=== PATIENT | female | born 1975 | race Caucasian/White ===

== ENCOUNTER 2024-08-29 15:02 | Emergency (ER) | payer OTHER, SELFPAY ==
--- NOTE | ~2024-08-29 | CT_ITS ---
CT abdomen pelvis w con Ordering provider: Naomi Falcon MD History: 49 years Female with . ABDOMINAL PAIN . Comparison: None. Technique: CT abdomen and pelvis with IV and without oral contrast. Automated exposure control and it erative reconstruction technique were employed. The dose-length product was 611.24 mGy-cm. 100 mL Omn ipaque 350 was given IV. Findings: VISUALIZED LOWER CHEST: Normal. UPPER ABDOMINAL ORGANS: Liver: Normal. Gallbladder: Slightly increased density near to the fundus area is seen in the coronal images which m ay be stones. Ultrasound evaluation advised. Spleen: Normal. Stomach/duodenum: Normal. Pancreas: Normal. Adrenals: Normal. Kidneys: Old scars are seen in the right kidney upper pole. PELVIC ORGANS: The bladder is normal. Right ovarian cysts are seen in the largest measures 2.9 CNM. Pain BOWEL AND MESENTERY: Colon: No evidence of diverticulitis.. Normal appendix. Small Bowel: Normal. No obstruction. Peritoneum/mesentery: No free air or free fluid. No mesenteric lymphadenopathy. RETROPERITONEUM: Normal aorta. No retroperitoneal lymphadenopathy. MUSCULOSKELETAL: Superficial soft tissues: The superficial soft tissues are normal. Bones: Age appropriate degenerative changes of the spine. IMPRESSION: 1. No evidence of appendicitis, diverticulitis or intestinal obstruction. 2. cysts in the right ovary with the largest measures 2.9 cm. 3. Possible tiny stones in the gallbladder. Ultrasound evaluation advised. Reviewed, dictated and finalized at location A.
--- NOTE | ~2024-08-29 | US_ITS ---
EXAM: ABDOMEN ULTRASOUND HISTORY: GALLBLADDER EVALUATION COMPARISON: Reference is made to a CT examination of the abdomen and pelvis, performed on the same da y approximately 1 hour earlier. FINDINGS: LIVER: Coarse echogenicity is identified within the liver is not enlarged. The portal vein is patent, demonstrating hepatopedal flow. GALLBLADDER: Multiple stones are identified within the gallbladder, which is otherwise unremarkable. No gallbladder wall thickening or pericholecystic fluid. BILE DUCTS: Common bile duct measures 2.54mm. PANCREAS: Limited evaluation of the pancreas secondary to overlying bowel gas IMPRESSION: Cholelithiasis, without ultrasound evidence of cholecystitis. Reviewed, dictated and finalized at location A.
[2024-08-29 15:03] VITALS: BP 138/86; PULSE 112; RESP 18; TEMP 37; O2SAT 98
--- NOTE | 2024-08-29 16:09 | ED.ABDPAIN ---
HPI - Abdominal Pain General Chief Complaint: Abdominal Pain Stated Complaint: abd pain Time Seen by Provider: 08/29/24 16:09 Source: patient History of Present Illness HPI narrative: 49 YEARS OLD WHITE FEMALE CAME TO THE ED BY PRIVATE CAR COMPLAINING OF INDIGESTION LIKE FEELING STARTED AT 12 MIDNIGHT, GOT WORSE OVER THE FOLLOWING HOURS, MID ABDOMINAL STABBING PAIN ASSOCIATED WITH NAUSEA AND FATIGUE, THEN GO TO WORK THIS MORNING, PAIN WORSE WITH WALKING, BETTER LAYING DOWN STILL. SHE REPORTS SOME FEVER, CHILLS. LAST ADVIL INTAKE WAS 2:00 A.M., N/C PATIENT MAIN COMPLAINT IS NAUSEA, SHE DECLINED TO TAKE ANY PAIN MEDICATION AT THIS TIME. PATIENT IS TELLING ME THAT SHE STARTED ON SEMAGLUTIDE 11 WEEKS AGO CURRENTLY ON 2.5 MG A WEEK. SHE DENIED ABDOMINAL SURGERY. SHE DENIES SMOKING OR DRINKING OR USING DRUGS. Related Data Allergies Allergy/AdvReac Type Severity Reaction Status Date / Time No Known Allergies Allergy Verified 08/29/24 15:05 Course Vital Signs Vital signs: Vital Signs Temperature 37.0 C 08/29/24 15:03 Pulse Rate 112 H 08/29/24 15:03 Respiratory Rate 18 08/29/24 15:03 Blood Pressure 138/86 08/29/24 15:03 Pulse Oximetry 98 08/29/24 15:03 Temperature 37.0 C 08/29/24 15:03 Pulse Rate 112 H 08/29/24 15:03 Respiratory Rate 18 08/29/24 15:03 Blood Pressure 138/86 08/29/24 15:03 Pulse Oximetry 98 08/29/24 15:03 MDM - Abdominal Pain MDM Narrative Medical decision making narrative: PATIENT CAME WITH LOW ABDOMINAL PAIN VITAL SIGNS SHOWING HEART RATE OF 112 OTHERWISE WITHIN NORMAL LIMIT PHYSICAL EXAMINATION CONSISTENT WITH A RIGHT LOWER QUADRANT TENDERNESS, POSITIVE GUARDING. DIFFERENTIAL DIAGNOSIS INCLUDE APPENDICITIS, RUPTURED OVARIAN CYST, COLITIS, DIVERTICULITIS, CONSTIPATION, URINARY TRACT INFECTION, SEMAGLUTIDE SIDE-EFFECT. BLOOD WORKUP TODAY INCLUDES CBC, CMP, LIPASE SHOWED URINALYSIS SHOWED CT ABDOMEN AND PELVIS WITH IV CONTRAST SHOWED QUESTIONABLE GALLBLADDER STONE, ULTRASOUND RECOMMENDED GALLBLADDER ULTRASOUND SHOWED DIAGNOSIS ABDOMINAL PAIN LIKELY SECONDARY TO SEMAGLUTIDE USE, CONSIDER DENTAL URINARY TRACT INFECTION PATIENT CARE TURNED OVER TO DR. GRAJEDA AT SHIFT CHANGE, AWAITING GALLBLADDER ULTRASOUND, DISPOSITION. PATIENT BEEN RESTING QUIETLY IN THE EMERGENCY ROOM WITHOUT ANY ISSUES OR PROBLEMS. Differential Diagnosis Differential diagnosis: Likely other ( ABOVE) Medical Records Attestation: I reviewed the patient's medical records. Lab Data Attestation: I reviewed the patient's lab results. 08/29/24 16:20 08/29/24 16:20 Labs: Lab Results 08/29/24 08/29/24 Range/Units 16:20 16:28 WBC 4.3 L (4.5-10.0) K/mm3 RBC 3.85 L (4.2-5.4) M/mm3 Hgb 11.8 L (12.0-15.0) g/dL Hct 35.5 L (37.0-47.0) % MCV 92.2 (80-100) fl MCH 30.6 (26-34) pg MCHC 33.2 (32-36) g/dl RDW 12.6 (11.5-14.5) % Plt Count 206 (150-375) k/mm3 MPV 10.9 H (7.4-10.4) fl Immature Gran % (Auto) 0.2 (0-0.5) % Neut % (Auto) 86.4 H (45.5-73.1) % Lymph % (Auto) 10.2 L (18.3-44.2) % Wright % (Auto) 3.0 (2.6-8.5) % Eos % (Auto) 0.0 (0-4.4) % Baso % (Auto) 0.2 (0.2-1.2) % Lymph # (Auto) 0.44 L (0.9-3.2) K/mm3 Wright # (Auto) 0.1 (0.1-0.6) K/mm3 Eos # (Auto) 0.0 (0-0.3) K/mm3 Baso # (Auto) 0.0 (0.0-0.1) K/mm3 Abs Immat Gran (auto) 0.01 (0.00-0.031) K/mm3 Absolute Neuts (auto) 3.7 (1.3-6.7) K/mm3 Absolute Nucleated RBC 0.000 (0.0-0.012) K/mm3 Nucleated RBC % 0.0 (0.0-0.2) % Sodium 135 L (137-145) mmol/L Potassium 3.7 (3.4-5.0) mmol/L Chloride 103 (98-107) mmol/L Carbon Dioxide 22 (22-30) mmol/L Anion Gap 10 (4-12) mmol/L BUN 12 (7-17) mg/dL Creatinine 0.70 (0.7-1.0) mg/dL Estim Creat Clear Calc 96 ml/min Estimated GFR > 60 (59 - ) Glucose 96 (65-110) mg/dL Calcium 8.5 (8.4-10.2) mg/dL Total Bilirubin 0.8 (0.2-1.3) mg/dL AST 23 (14-36) U/L ALT 16 (6-35) U/L Alkaline Phosphatase 70 (38-126) U/L Total Protein 7.0 (6.3-8.2) g/dL Albumin 4.1 (3.5-5.1) g/dL Lipase 80 (23-300) U/L Urine Color Yellow (Yellow) Urine Appearance Cloudy H (Clear) Urine pH 5.5 (5.0-9.0) Ur Specific [place] 1.021 (1.001-1.035) Urine Protein Negative (Negative) mg/dL Urine Glucose (UA) Negative (Negative) mg/dL Urine Ketones 2+ H (Negative) mg/dL Ur Blood (Man) Negative (Negative) Urine Nitrate Negative (Negative) Urine Bilirubin Negative (Negative) Urine Urobilinogen 1.0 (<2.0) mg/dL Leukocyte Esterase Rfl 1+ H (Negative) MENDEZ/UL Urine RBC 0-2 (0-2) /hpf Urine WBC 11-20 H (0-3) /hpf Ur Squamous Epith Cells Few (Few) /hpf Urine Bacteria 4+ H /hpf Urine Casts 0-2 POC Urine HCG, Qual Negative (Negative) Imaging Data Radiologist's impression: ITS Impressions Abdomen/Pelvis CT 08/29/24 18:04 IMPRESSION: 1. No evidence of appendicitis, diverticulitis or intestinal obstruction. 2. cysts in the right ovary with the largest measures 2.9 cm. 3. Possible tiny stones in the gallbladder. Ultrasound evaluation advised. Critical Care Time Critical Care Time Critical Care Time: No Discharge Plan Discharge Clinical Impression: Urinary tract infection, Cyst of right ovary Patient Disposition: Home Condition: Stable Instructions: Antibiotic Form, Ovarian Cyst (ED), Urinary Tract Infection in Women (DC) Patient Language: Yakut Prescriptions: New nitrofurantoin monohyd/m-cryst [Macrobid] 100 mg capsule 100 mg PO Q12H 5 Days Qty: 10 0RF Rx Instructions: must administer with a meal/food ondansetron 4 mg tablet,disintegrating 4 mg PO DAILY 3 Days Qty: 10 0RF Follow-up/Referrals: PHYSICIAN NOT ON STAFF,NONSTAFF [Non-Staff] -
[2024-08-29] MEDS: SODIUM CHLORIDE 0.9% IV 1,000 ML 999 ML IV CONT (16:22)
[2024-08-29 16:30] LABS: BEDSIDEPREGUCG Negative (Negative)
[2024-08-29 16:31] LABS: Basophils Percent Auto 0.2 % (0.2-1.2); Hematocrit 35.5 % (37.0-47.0); Hemoglobin 11.8 g/dL (12.0-15.0); Immature Granulocyte Absolute 0.01 K/mm3 (0.00-0.031); Immature Granulocyte Percent A 0.2 % (0-0.5); Lymphocytes Absolute Auto 0.44 K/mm3 (0.9-3.2); Lymphocytes Percent Auto 10.2 % (18.3-44.2); Mean Corpuscular HGB Conc 33.2 g/dl (32-36); Mean Corpuscular Hemoglobin 30.6 pg (26-34); Mean Corpuscular Volume 92.2 fl (80-100); Mean Platelet Volume 10.9 fl (7.4-10.4); Monocytes Absolute Auto 0.1 K/mm3 (0.1-0.6); Neutrophils Absolute Auto 3.7 K/mm3 (1.3-6.7); Neutrophils Percent Auto 86.4 % (45.5-73.1); Platelet Count Result 206 k/mm3 (150-375); Red Blood Count 3.85 M/mm3 (4.2-5.4); Red Cell Distribution Width 12.6 % (11.5-14.5); White Blood Count 4.3 K/mm3 (4.5-10.0)
[2024-08-29 16:35] LABS: Add Urine Microscopic? YES; Appearance Urine Cloudy (Clear); Bacteria Urine 4+ /hpf; Bilirubin Urine Negative (Negative); Blood Urine Negative (Negative); Color Urine Yellow (Yellow); Glucose Urine UA Negative (Negative); Ketones Urine 2+ mg/dL (Negative); Leukocyte Esterase Ur 1+ LEU/UL (Negative); Nitrate Urine Negative (Negative); Non Pathogenic Casts 0-2; Protein Urine Negative (Negative); RBC Urine 0-2 /hpf (0-2); Specific Grav Ur 1.021 (1.001-1.035); Squamous Epithelial Cell Urine Few /hpf (Few); pH Urine 5.5 (5.0-9.0)
[2024-08-29 16:45] LABS: Alanine Aminotransferase 16 U/L (6-35); Albumin Level 4.1 g/dL (3.5-5.1); Alkaline Phosphatase 70 U/L (38-126); Anion Gap 10 mmol/L (4-12); Aspartate Amino Transferase 23 U/L (14-36); Bilirubin,Total 0.8 mg/dL (0.2-1.3); Blood Urea Nitrogen 12 mg/dL (7-17); Calcium 8.5 mg/dL (8.4-10.2); Carbon Dioxide 22 mmol/L (22-30); Chloride 103 mmol/L (98-107); Estimated CRCL calculation 96 ml/min; Estimated Glomerular Filt Rate > 60; Glucose 96 mg/dL (65-110); Lipase 80 U/L (23-300); Potassium 3.7 mmol/L (3.4-5.0); Sodium 135 mmol/L (137-145)
[2024-08-29 19:03] VITALS: BP 119/70; PULSE 93; RESP 17; O2SAT 99
[2024-08-29 20:58] VITALS: PULSE 89; RESP 15; O2SAT 99
== END 2024-08-29 20:59 | disposition home or self-care (01) ==
PROVIDERS: Emergency Provider Emergency Medicine
DX: N39.0 Urinary tract infection, site not specified (principal); N83.201 Unspecified ovarian cyst, right side
CPT/HCPCS: 36415; 74177; 76705; 80053; 81001; 81025; 83690; 85025; 87086; 87181; 96361; 96374; 99284; J0696; J7030; Q9967